=== PATIENT | female | born 1950 | race Caucasian/White ===

== ENCOUNTER 2016-08-29 14:43 | Emergency (ER) | payer MEDICARE ==
[2016-08-29 16:02] LABS: ALBUMIN 3.7 g/dL (3.4-5.0); ALKALINE PHOSPHATASE 60 U/L (46-116); ALT (SGPT) 16 U/L (10-68); BILIRUBIN - TOTAL 0.31 mg/dL (0.2-1.3); CALC OSMOLALITY 283 mosm/kg (275-300); CALCIUM 8.9 mg/dL (8.5-10.1); CARBON DIOXIDE 24.8 mmol/L (21.0-32.0); CHLORIDE - SERUM 105 mmol/L (98-107); CREATININE - SERUM 0.8 mg/dL (0.6-1.3); GLUCOSE 108 mg/dL (74-106); POTASSIUM - SERUM 3.7 mmol/L (3.5-5.1); PROTEIN - SERUM 7.1 g/dL (6.4-8.2); SODIUM 141 mmol/L (136-145); UREA NITROGEN 18 mg/dL (7-18); eGFR NON AFRICAN AMERICAN 76 mL/min (90-120)
== END 2016-08-29 18:40 | disposition home or self-care (01) ==
LOC: D.ER 14:43
PROVIDERS: Emergency Medicine
DX: I10 Essential (primary) hypertension (principal); F17.200 Nicotine dependence, unspecified, uncomplicated

== ENCOUNTER 2019-06-23 11:13 | Inpatient (IN) | payer MEDICARE ==
[~2019-06-23] VITALS: Ht 157.5 cm; Wt 62.7 kg
[2019-06-23] MEDS ORDERED: LISINOPRIL5 MG PO (11:22)
[2019-06-23] MEDS ORDERED: NORVASC10 MG PO (11:22)
[2019-06-23 11:35] LABS: BASOPHILS 0.1 % (0-2); EOSINOPHILS 1.4 % (0-7); HEMATOCRIT 39.6 % (36.0-48.0); HEMOGLOBIN 13.2 g/dL (12-16); IMMATURE GRANULOCYTES 0.3 % (0-5); LYMPHOCYTES 11.1 % (15-50); MCH 29.1 pg (26.0-34.0); MCHC 33.3 g/dL (31.0-37.0); MCV 87.4 fL (80.0-100.0); MEAN PLATELET VOLUME 8.9 fL (7.4-10.4); MONOCYTES 7.1 % (2-11); PLATELET COUNT 324 10x3/uL (130-400); RBC 4.53 10x6/uL (4.00-5.40); WBC 14.6 10x3/uL (4.8-10.8)
[2019-06-23 11:45] LABS: APTT 34.4 SECONDS (22.8-39.4); INR 0.9 (0.85-1.17); PROTIME 12.1 SECONDS (11.6-15.0)
[2019-06-23 11:53] LABS: CALC OSMOLALITY 280 mosm/kg (275-300); CALCIUM 9.3 mg/dL (8.5-10.1); CARBON DIOXIDE 25.2 mmol/L (21.0-32.0); CHLORIDE - SERUM 101 mmol/L (98-107); CREATININE - SERUM 1.1 mg/dL (0.6-1.3); GLUCOSE 130 mg/dL (74-106); POTASSIUM - SERUM 4.1 mmol/L (3.5-5.1); SODIUM 138 mmol/L (136-145); UREA NITROGEN 20 mg/dL (7-18); eGFR NON AFRICAN AMERICAN 52 mL/min (90-120)
[2019-06-23 12:10] LABS: ALBUMIN 3.6 g/dL (3.4-5.0); ALKALINE PHOSPHATASE 106 U/L (46-116); ALT (SGPT) 24 U/L (10-68); AMYLASE - SERUM 37 U/L (25-115); BILIRUBIN - TOTAL 0.95 mg/dL (0.2-1.3); CREATINE KINASE 36 UL (21-215); LIPASE 86 U/L (73-393); MAGNESIUM - SERUM 1.9 mg/dL (1.8-2.4); PRO BNP 279 pg/mL (0-125); PROTEIN - SERUM 7.9 g/dL (6.4-8.2)
[2019-06-23 12:14] LABS: TROPONIN-I < 0.017 ng/mL (0.000-0.060)
[2019-06-23 13:44] VITALS: BP 112/67
[2019-06-23 14:55] VITALS: BP 131/75
--- NOTE | 2019-06-23 15:54 | NUR ---
VALIUM HELD PER HAILE WAITER. REQUESTED TO HOLD FOR APPROX 1-2 HRS SINCE MORPHINE GIVEN PRIOR
--- NOTE | 2019-06-23 16:26 | NUR ---
PT ARRIVED VIA WHEELCHIAR TO ROOM, ALERT AND ORIENTEDX4, UP WITH ASSIST. STATES SHE HAS EXTREME PAIN WHEN EVER SHE MOVES. OTHERWISE, NO COMPLAINTS. DAUGHTER. CL IN REACH, SRX2.
[2019-06-23 16:34] VITALS: BP 122/68; Ht 157.5 cm; Wt 62.7 kg
[2019-06-23 16:52] VITALS: BP 105/61
[2019-06-23 20:00] VITALS: BP 115/68
--- NOTE | 2019-06-23 20:00 | NUR ---
RECIEVED UP IN BED WITH EYES OPEN AND TV ON. ALERT AND ORIENTED X4. UP AD RHONDA TO B/R. PLACED A [place] HAT IN TOILET AND EDUCATED PT ON U/A COLLECTION. 02 @ 2 LITERTS PER N/C IN PLACE. IV TO RIGTHT AC SL. MASCETOMY TO LEFT CHEST. DENIES ANY NEEDS AT THIS TIME.
--- NOTE | 2019-06-23 20:05 | NUR ---
URINE COLLECTED. WILL SEND TO LAB.
[2019-06-23 20:32] LABS: APPEARANCE CLEAR (CLEAR); BILIRUBIN NEGATIVE (NEGATIVE); COLOR YELLOW (YELLOW); GLUCOSE NEGATIVE (NEGATIVE); KETONE NEGATIVE (NEGATIVE); NITRITE NEGATIVE (NEGATIVE); PROTEIN NEGATIVE (NEGATIVE); UROBILINOGEN NORMAL (NORMAL)
[2019-06-24] VITALS: BP 107/58
[2019-06-24 04:00] VITALS: BP 102/54
[2019-06-24 06:47] LABS: BASOPHILS 0 % (0-2); EOSINOPHILS 0 % (0-7); HEMATOCRIT 34.8 % (36.0-48.0); HEMOGLOBIN 11.5 g/dL (12-16); IMMATURE GRANULOCYTES 0.3 % (0-5); LYMPHOCYTES 5.5 % (15-50); MCH 28.8 pg (26.0-34.0); MCV 87.2 fL (80.0-100.0); MEAN PLATELET VOLUME 9.2 fL (7.4-10.4); MONOCYTES 2.7 % (2-11); NEUTROPHILS 91.5 % (40-80); PLATELET COUNT 314 10x3/uL (130-400); RBC 3.99 10x6/uL (4.00-5.40); RDW 12.8 % (11.5-14.5); WBC 17.3 10x3/uL (4.8-10.8)
[2019-06-24 07:18] LABS: ANION GAP 12.7 mmol/L (8-16); CALCIUM 9.1 mg/dL (8.5-10.1); CARBON DIOXIDE 26.4 mmol/L (21.0-32.0); CREATININE - SERUM 0.9 mg/dL (0.6-1.3); POTASSIUM - SERUM 4.1 mmol/L (3.5-5.1)
--- NOTE | 2019-06-24 08:07 | NUR ---
PT RESTING. RR EVEN AND UNLABORED. DENIES NEEDS OR PAIN AT THIS TIME. AXO. BED IN LOWEST POSITION. CALL LIGHT WITHIN REACH. WILL CONTINUE TO MONITOR.
[2019-06-24 08:27] VITALS: BP 123/61
[2019-06-24] MEDS ORDERED: MEDROL DOSE PACK4 MG PO (10:10)
[2019-06-24] MEDS ORDERED: ZPAK PO (10:12)
--- NOTE | 2019-06-24 11:57 | NUR ---
D/C INSTRUCTIONS REVIEWED WITH PT. VERBALIZED UNDERSTANDING AND DENIES FURTHER QUESTIONS AT THIS TIME. IV D/C WITH CATHETER TIP INTACT. TELEMETRYREMOVED AND RETURNED TO CONSTRUCTION JOB COST ESTIMATOR. PT LEFT VIA WHEELCHAIR WITH ALL BELONGINGS TO PERSONAL VEHICLE.
== END 2019-06-24 12:00 | disposition home or self-care (01) | DRG 188 ==
LOC: D.ER 11:13 → D.M2 15:05
PROVIDERS: Family Medicine; ADMIT Family Medicine; ATTEND Family Medicine
DX: J90 Pleural effusion, not elsewhere classified (principal); I10 Essential (primary) hypertension; K21.9 Gastro-esophageal reflux disease without esophagitis; K44.9 Diaphragmatic hernia without obstruction or gangrene

== ENCOUNTER 2019-07-16 17:21 | Inpatient (IN) | payer MEDICARE ==
[~2019-07-16] VITALS: Ht 157.5 cm; Wt 67.6 kg
[~2019-07-16 17:21] MED LIST: ALBUTEROL SULF8.5 GM; CLEOCIN HCL300 MG PO; COLACE100 MG PO; FLORAJEN3 CAPS460 MG PO; IPRAT-ALBUT 0.5-3 ML INH; LEVOFLOXACIN500 MG PO; LISINOPRIL5 MG PO; LOVENOX40 MG/0.4 SC; MEDROL DOSE PACK4 MG PO; MIRALAX17 GM PO; NORVASC10 MG PO; PEPCID PO; ULTRAM50 MG PO; ZPAK PO
--- NOTE | 2019-07-16 19:18 | NUR ---
PT JUST ARRIVED TO UNIT VIA WHEELCHAIR. CL IN REACH. TELEMETRY ON. BED IN LOW SIDE RAILS X2. A/O X4. WILL CONTINUE TO MONITOR.
[2019-07-16 21:08] VITALS: BP 128/59
[2019-07-17 00:10] VITALS: BP 128/59; BMI 27.3
[2019-07-17 05:56] LABS: BASOPHILS 0.2 % (0-2); HEMATOCRIT 27.8 % (36.0-48.0); IMMATURE GRANULOCYTES 0.6 % (0-5); LYMPHOCYTES 13.3 % (15-50); MCH 28.1 pg (26.0-34.0); MCHC 32.4 g/dL (31.0-37.0); MCV 86.9 fL (80.0-100.0); MEAN PLATELET VOLUME 9.7 fL (7.4-10.4); MONOCYTES 8.1 % (2-11); NEUTROPHILS 76.8 % (40-80); RDW 13.9 % (11.5-14.5); WBC 12.1 10x3/uL (4.8-10.8)
[2019-07-17 06:28] LABS: CALC OSMOLALITY 266 mosm/kg (275-300); CALCIUM 7.4 mg/dL (8.5-10.1); CARBON DIOXIDE 28.5 mmol/L (21.0-32.0); CHLORIDE - SERUM 102 mmol/L (98-107); CREATININE - SERUM 0.7 mg/dL (0.6-1.3); GLUCOSE 97 mg/dL (74-106); POTASSIUM - SERUM 4.1 mmol/L (3.5-5.1); SODIUM 134 mmol/L (136-145); UREA NITROGEN 11 mg/dL (7-18); eGFR NON AFRICAN AMERICAN 88 mL/min (90-120)
[2019-07-17 06:48] LABS: PLATELET COUNT 387 10x3/uL (130-400)
--- NOTE | 2019-07-17 07:54 | NUR ---
RECEIVED REPORT. ASSUMED CARE OF PATIENT. CALL LIGHT WITHIN. RESTING IN BED WITH EYES OPEN. RESP EVEN AND UNLABORED. NO DISTRESS.
[2019-07-17 08:04] VITALS: BP 127/74
--- NOTE | 2019-07-17 09:45 | NUR ---
PATIENT OOB WITH THERAPY, GETTING SHOWER AT THIS TIME PART OF THERAPY.
--- NOTE | 2019-07-17 11:45 | NUR ---
PATIENT OOB, UP TO WHEELCHAIR IN THERAPY. TOLERATES THERAPY WELL. NO DISTRESS.
--- NOTE | 2019-07-17 15:30 | NUR ---
RESTING IN BED WITH EYES OPEN. NO DISTRESS. CALL LIGHT WITHIN REACH.
[2019-07-17 15:58] VITALS: Ht 157.5 cm; Wt 67.6 kg
--- NOTE | 2019-07-17 19:20 | NUR ---
PT LYING IN BED WATCHING TV. CL IN REACH. DENIES NEEDS OR PAIN AT THIS TIME. BED IN LOW SIDE RAILS X2. A/O X4. LUNGS DIMINISHED. BOWEL ACTIVE X4. RESP EVEN AND UNLABORED. LEFT ARM RESERVE. O2 ON 4L [place] NC. WILL CONTINUE TO MONITOR.
[2019-07-17 21:50] VITALS: BP 122/57
--- NOTE | 2019-07-18 00:30 | NUR ---
PT RESTING QUIETLY. CL IN REACH. NO DISTRESS NOTED. WCTM
--- NOTE | 2019-07-18 02:29 | NUR ---
I have reviewed this patient and I concur with the Shift Assessment completed by the Licensed Practical Nurse today this shift.
--- NOTE | 2019-07-18 05:34 | NUR ---
PT RESTING QUIETLY. CL IN REACH. NO DISTRESS NOTED. WCTM
[2019-07-18 08:44] VITALS: BP 135/67
[2019-07-18 08:53] LABS: CALC OSMOLALITY 265 mosm/kg (275-300); CALCIUM 7.9 mg/dL (8.5-10.1); CARBON DIOXIDE 31.3 mmol/L (21.0-32.0); CHLORIDE - SERUM 100 mmol/L (98-107); CREATININE - SERUM 0.8 mg/dL (0.6-1.3); GLUCOSE 99 mg/dL (74-106); POTASSIUM - SERUM 3.6 mmol/L (3.5-5.1); SODIUM 134 mmol/L (136-145); eGFR NON AFRICAN AMERICAN 75 mL/min (90-120)
[2019-07-18 08:54] LABS: UREA NITROGEN 8 mg/dL (7-18)
[2019-07-18 08:55] LABS: BASOPHILS 0.1 % (0-2); EOSINOPHILS 1.4 % (0-7); HEMATOCRIT 31.1 % (36.0-48.0); HEMOGLOBIN 10.1 g/dL (12-16); IMMATURE GRANULOCYTES 0.6 % (0-5); LYMPHOCYTES 11.7 % (15-50); MCH 28.5 pg (26.0-34.0); MCHC 32.5 g/dL (31.0-37.0); MCV 87.6 fL (80.0-100.0); MEAN PLATELET VOLUME 9.7 fL (7.4-10.4); MONOCYTES 7.7 % (2-11); NEUTROPHILS 78.5 % (40-80); PLATELET COUNT 454 10x3/uL (130-400); RBC 3.55 10x6/uL (4.00-5.40); RDW 14.4 % (11.5-14.5); WBC 11.4 10x3/uL (4.8-10.8)
--- NOTE | 2019-07-18 09:20 | NUR ---
PT AM MEDS ADMINISTERED. PT DENIES NEEDS. WCTM.
--- NOTE | 2019-07-18 11:35 | NUR ---
ADMINISTERED PRN ULTRAM FOR PAIN 7/10 TO BACK AT THIS TIME.
--- NOTE | 2019-07-18 19:40 | NUR ---
GREETED PATIENT AND INTRODUCED MYSELF HER NURSE. PATIENT IS LAYING IN BED WATCHING TV AT THIS TIME. O2 AT 2L IN USE VIA NC. RESPIRATIONS EVEN. NO S/S OF DISTRESS. DENIES ANY FURTHER NEEDS AT THIS TIME. CALL LIGHT IN REACH.
[2019-07-18 21:41] VITALS: BP 133/85
--- NOTE | 2019-07-19 00:35 | NUR ---
PT. AWAKE LAYING IN BED WATCHING TV. RESPIRATIONS EVEN. NO S/S OF DISTRESS. DENIES ANY NEEDS AT THIS TIME. CALL LIGHT IN REACH.
[2019-07-19 08:12] VITALS: BP 135/70
--- NOTE | 2019-07-19 09:48 | NUR ---
PT AM MEDS ADMINISTERED. PT DENIES NEEDS. WCTM.
--- NOTE | 2019-07-19 16:11 | RHP ---
PATIENT: RICHARD SHELTON MEDICAL RECORD: [id number] ACCOUNT: [id number] LOCATION:[place] [id number] : 52 ADMISSION DATE: 07/16/19 REHABILITATION HISTORY AND PHYSICAL EXAMINATION POST ADMISSION PHYSICIAN EXAMINATION ADMITTING DIAGNOSIS: Disuse myopathy. 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 She failed outpatient therapy and prolonged immobility. She arrived at the ED on 07/06/2019 complaining of nonproductive cough, fatigue, malaise, fever, had shortness of breath and decreased p.o. intake. She was hospitalized on 06/23/2019 for pleurisy and left pleural effusion. She received IV steroids and antibiotics, discharged home. She gradually improved, seen in the office 4 days after this, was feeling better, just fatigued. Her cough improved. She stated that for the last 2 days, she had been somewhat weaker. Her steroids were decreased orally. On the afternoon of 07/06/2019, she developed acute onset of cough, congestion and presented back to the Emergency Room where she was seen having a large pneumonia in left lower lobe. She had mild distress, rales, rhonchi, decreased breath sounds. She is noted to be hypotensive. She had an elevated lactic acid and failure outpatient therapy for pneumonia. She had sepsis and pneumonia. She was started on fluids per sepsis protocol. She was given vancomycin and Merrem and placed on O2. Cardiology was consulted secondary to her atrial fibrillation with rapid ventricular response. She is also seen by pulmonary during her stay. She had recommendations for IR to do thoracentesis. She had a CT-guided left chest tube placement on 07/09/2019. The patient had 800 cc of pleural fluid in the upper chest and 600 cc in the lower chest. She is currently on 4 liters of O2. Chest tube output has been steadily decreased over the previous couple of days, so this eventually was removed and IR signed off. Previously, the patient was independent with ADLs and mobility using a cane occasionally. Lives in her home with her niece that stays with her. Currently, she has had prolonged immobility, progressive generalized weakness, especially in lower extremities affecting her tolerance to PT. She is very fatigued, has limited extension and flexion of her lower extremities. Proximal muscle strength has decreased. She is mod to max assist for ADLs, mod to max assist for sit to stand and bed to chair. She is highly motivated and has good family support and would like to return home at her prior level of functioning. COMORBIDITIES: Include acute hypoxic respiratory failure, chest tube placement. She has got paroxysmal atrial fib, pneumonia, shortness of breath, pleural effusion, chronic obstructive pulmonary disease, hypertension, palpitations, electrolyte abnormalities, sepsis, malaise, fatigue, weakness, failed outpatient therapy, pleural effusion and cholelithiasis. 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 PAST SURGICAL HISTORY: Includes a mastectomy and also a . ALLERGIES: PENICILLIN. HISTORY AND PHYSICAL [id number] RICHARD SHELTON CURRENT MEDICATIONS: Include Floranex daily, MiraLax 17 grams in 8 ounces of water daily, lisinopril 5 mg daily, Levaquin 500 mg daily, Lovenox 40 mg subcutaneous daily, Colace 100 mg daily, Norvasc 10 mg daily, Pepcid 20 mg at bedtime, clindamycin 600 mg b.i.d., Ultram 50 to 100 mg every 6 hours p.r.n., albuterol updrafts as needed. HABITS: Does have a history of tobacco use. FAMILY HISTORY: Noncontributory. SOCIAL HISTORY: The patient hopes to return back home and get back to her prior level of functioning. REVIEW OF SYSTEMS: GENERAL: Does complain of weakness and fatigue. HEENT: Denies cold, cough, or congestion. CARDIOVASCULAR: Denies any chest pain at this time. LUNGS: Does complain of shortness of breath with activity. PHYSICAL EXAMINATION: VITAL SIGNS: Stable. She is afebrile. GENERAL: A well-developed female, in no acute distress upon exam. HEENT: Normocephalic and atraumatic. Mucosa moist. NECK: Supple. LUNGS: Clear in upper [place]ley. No wheezing, rhonchi or rales. HEART: Regular rate and rhythm. She has no murmurs, rubs or gallops. ABDOMEN: Soft, benign, and nondistended. Positive bowel sounds times 4. EXTREMITIES: Does have some changes consistent with a small amount of venous stasis, but no clubbing, cyanosis or edema. NEUROLOGIC: She does have noted proximal muscle weakness. LABORATORY DATA: White count is 12,000, H&H 9 and 27, and platelet count was noted to be 387. Her sodium is 134, potassium 4.1, BUN and creatinine of 11 and 0.7 and blood sugar was noted to be 97. ASSESSMENT: This is a 69-year-old female admitted to rehab with a working diagnosis of disuse myopathy secondary to prolonged stay in the ICU and chest tube placement. The patient has potential to make improvement. We instituted the following multidisciplinary therapies including but not limited to physical, occupational, respiratory, speech, nutritional services, prosthetics and orthotics. Given her complex medical conditions and risks for more complications, rehabilitation services cannot be provided at a low level of care such as skilled nurse facility. PLAN: 1. Admit to [facility] for intensive inpatient therapy to include the following disciplines; A. Physical therapy to improve gait, all transfer skills and bed mobility to a modified independent level. B. Occupational therapy to a modified independent level. C. Case management to assist with discharge planning and placement options. D. Nutrition to assist with nutritional needs. E. Rehabilitation nursing to assist in monitoring the patient's underlying medical conditions and to assist with any type of bowel or bladder management. 2. The patient's current medication and medical care will be continued. HISTORY AND PHYSICAL [id number] RICHARD SHELTON 3. The patient will be placed on standard fall precautions. 4. The patient's estimated length of stay is approximately 7-10 days. 5. We will discuss this patient during care team staff meeting this week, which will be tomorrow. We will keep her on her antibiotics, watch for any changes in her pneumonia. Repeat chest x-rays as needed. TRANSINT:[id number] Voice Confirmation ID: [id number] DOCUMENT ID: [id number] PATRICIO notes whether there has been none or any medical/functional change since admission: - No change since pre-admission screen. PATRICOI attests patient continues to be appropriate for IRF: - Continues to be appropriate. JOSÉ MIGUEL MENDIETA MD at 1611 CC: [id number] DICTATION DATE: 07/17/19 0850 BARREL BUNG REMOVER AND DUMPER: 07/17/19 1020 [place] [address]
--- NOTE | 2019-07-19 17:20 | NUR ---
PATIENT ADMITTED TO REHAB FROM ACUTE FLOOR. HER PCP IS DR. NIETO. DME AT HOME IS A CANE, WALKER, WHEELCHAIR AND A SHOWERCHAIR. WILL CONTINUE TO FOLLOW WITH PATIENT.
--- NOTE | 2019-07-19 19:11 | NUR ---
GREETED PATIENT AND INTRODUCED MYSELF HER NURSE. PATIENT IS SITTING IN RECLINER WATCHING TV AT THIS TIME WITH LEGS ELEVATED. BEDSIDE SHIFT REPORT COMPLETE WITH OFF GOING NURSE. RESPIRATIONS EVEN. NO S/S OF DISTRESS. CALL LIGHT IN REACH.
[2019-07-19 22:13] VITALS: BP 103/52
--- NOTE | 2019-07-20 02:25 | NUR ---
PT. STILL SITTING IN RECLINER SLEEPING. PT. STATED THAT SHE WANTED TO SLEEP IN THE CHAIR INSTEAD OF THE BED FOR A LITTLE WHILE. O2 AT 4L IN USE VIA NC. RESPIRATIONS EVEN. NO S/S OF DISTRESS. CALL LIGHT IN REACH.
[2019-07-20 08:55] LABS: BASOPHILS 0.3 % (0-2); EOSINOPHILS 1.9 % (0-7); HEMATOCRIT 27.6 % (36.0-48.0); HEMOGLOBIN 8.8 g/dL (12-16); IMMATURE GRANULOCYTES 0.4 % (0-5); LYMPHOCYTES 14.1 % (15-50); MCH 27.9 pg (26.0-34.0); MCHC 31.9 g/dL (31.0-37.0); MCV 87.6 fL (80.0-100.0); MEAN PLATELET VOLUME 9.3 fL (7.4-10.4); MONOCYTES 10.7 % (2-11); NEUTROPHILS 72.6 % (40-80); PLATELET COUNT 408 10x3/uL (130-400); RBC 3.15 10x6/uL (4.00-5.40); RDW 14.6 % (11.5-14.5)
[2019-07-20 09:02] LABS: WBC 7.8 10x3/uL (4.8-10.8)
[2019-07-20 09:05] LABS: CALC OSMOLALITY 266 mosm/kg (275-300); CALCIUM 7.7 mg/dL (8.5-10.1); CARBON DIOXIDE 28.7 mmol/L (21.0-32.0); CHLORIDE - SERUM 101 mmol/L (98-107); CREATININE - SERUM 0.8 mg/dL (0.6-1.3); GLUCOSE 96 mg/dL (74-106); POTASSIUM - SERUM 3.6 mmol/L (3.5-5.1); SODIUM 134 mmol/L (136-145); UREA NITROGEN 10 mg/dL (7-18); eGFR NON AFRICAN AMERICAN 75 mL/min (90-120)
--- NOTE | 2019-07-20 09:20 | NUR ---
PT AM MEDS ADMINISTERED. PT DENIES NEEDS. WCTM.
[2019-07-20 09:41] VITALS: BP 85/44
--- NOTE | 2019-07-20 19:26 | NUR ---
GREETED PATIENT AND INTRODUCED MYSELF HER NURSE. PATIENT IS SITTING IN RECLINER WITH LEGS ELEVATED TO HELP WITH SWELLING. PATIENT STATES THAT SHE HAS HAD A "GOOD DAY". O2 AT 1.5 L IN USE VIA NC. RESPIRATIONS EVEN. NO S/S OF DISTRESS. CALL LIGHT IN REACH.
[2019-07-20 20:01] VITALS: BP 109/64
--- NOTE | 2019-07-21 00:20 | NUR ---
PT. AWAKE SITTING IN RECLINER WATCHING TV. LEGS ELEVATED TO HELP WITH SWELLING. O2 IN USE AT 1.5 L NC. RESPIRATIONS EVEN. NO S/S OF DISTRESS. CALL LIGHT IN REACH.
--- NOTE | 2019-07-21 07:14 | NUR ---
ALERT AND ORIENTED. NO C/O PAIN. RESP EVEN AND UNLABORED.
[2019-07-21 07:48] VITALS: BP 90/43
--- NOTE | 2019-07-21 11:29 | NUR ---
SITTING IN ROOM IN . PAIN MED GIVEN FOR BACK PAIN. NO DISTRESS NOTED. PARTICIPATED IN THERAPY THIS AM.
--- NOTE | 2019-07-21 15:23 | NUR ---
NO CHANGE IN ASSESSMENT. IN THERAPY AT THIS TIME. NO DISTRESS NOTED.
--- NOTE | 2019-07-21 19:20 | NUR ---
GREETED PATIENT AND INTRODUCED MYSELF HER NURSE. PATIENT IS SITING IN RECLINER WITH LEGS ELEVATED TO HELP WITH SWELLING. O2 AT 2L IN USE VIA NC. RESPIRATIONS EVEN. NO S/S OF DISTRESS. DENIES ANY FURTHER NEEDS AT THIS TIME. CALL LIGHT IN REACH.
[2019-07-21 20:30] VITALS: BP 98/44
--- NOTE | 2019-07-22 00:49 | NUR ---
PT. RESTING QUIETLY WITH EYES CLOSED SITTING IN RECLINER WITH LEGS ELEVATED.O2 AT 2L IN USE VIA NC. RESPIRATIONS EVEN. NO S/S DISTRESS.
--- NOTE | 2019-07-22 04:41 | NUR ---
PT. RESTING QUIETLY SITTING UP IN RECLINER WITH EYES CLOSED. O2 AT 2L IN USE VIA NC. RESPIRATIONS EVEN. NO S/S OF DISTRESS. CALL LIGHT IN REACH.
[2019-07-22 09:29] VITALS: BP 88/50
--- NOTE | 2019-07-22 10:00 | NUR ---
PT AM MEDS ADMINSITERED. PT DENIES NEEDS. WCTM.
--- NOTE | 2019-07-22 18:27 | NUR ---
PT SITTING UP IN BEDSIDE CHAIR, FAMILY AT BEDSIDE, DENIES NEEDS. WCTM.
--- NOTE | 2019-07-22 19:32 | NUR ---
PT SITTING UP IN RECLINER WATCHING TV. CL IN REACH. DENIES NEEDS OR PAIN AT THIS TIME. BED IN LOW SIDE RAILS X2. A/O X4. LEFT ARM RESERVE. 2L OF O2 VIA NC. LUNGS CLEAR. BOWEL ACTIVE X4. RESP EVEN AND UNLABORED. WILL CONTINUE TO MONITOR.
[2019-07-22 20:00] VITALS: BP 105/59
--- NOTE | 2019-07-23 00:48 | NUR ---
I have reviewed this patient and I concur with the Shift Assessment completed by the Licensed Practical Nurse today this shift.
--- NOTE | 2019-07-23 04:35 | NUR ---
ASSISTED TO AND FROM BATHROOM. PT BACK IN RECLINER. DENIES FURTHER NEEDS. WCTM CL IN REACH
[2019-07-23 07:55] LABS: BASOPHILS 0.6 % (0-2); EOSINOPHILS 2.4 % (0-7); HEMATOCRIT 27.7 % (36.0-48.0); IMMATURE GRANULOCYTES 0.4 % (0-5); MCH 27.5 pg (26.0-34.0); MCHC 32.5 g/dL (31.0-37.0); MCV 84.7 fL (80.0-100.0); MEAN PLATELET VOLUME 8.4 fL (7.4-10.4); MONOCYTES 9.4 % (2-11); NEUTROPHILS 72.2 % (40-80); RBC 3.27 10x6/uL (4.00-5.40); RDW 14.2 % (11.5-14.5)
[2019-07-23 08:00] VITALS: BP 102/54
[2019-07-23 08:02] LABS: CALCIUM 8.3 mg/dL (8.5-10.1); CARBON DIOXIDE 29.8 mmol/L (21.0-32.0); POTASSIUM - SERUM 3.8 mmol/L (3.5-5.1)
[2019-07-23 08:09] LABS: PLATELET COUNT 297 10x3/uL (130-400)
--- NOTE | 2019-07-23 10:10 | NUR ---
PT AM MEDS ADMINISTERED. PT DENIES NEEDS. WCTM.
--- NOTE | 2019-07-23 18:21 | NUR ---
PT GIVEN PRN ZOFRAN D/T REQUEST. PT SITTING UP IN BEDSIDE CHAIR AT THIS TIME. WCTM.
--- NOTE | 2019-07-23 19:18 | NUR ---
PT SITTING UP IN RECLINER. DENIES NEEDS OR PAIN AT THIS TIME. BED IN LOW SIDE RAILS X2. A/O X4. LUNGS CLEAR. BOWEL ACTIVE X4. O2 ON 2L VIA NC. RESP EVEN AND UNLABORED. WILL CONTINUE TO MONITOR.
[2019-07-23 22:21] VITALS: BP 101/58
--- NOTE | 2019-07-24 00:27 | NUR ---
I have reviewed this patient and I concur with the Shift Assessment completed by the Licensed Practical Nurse today this shift.
--- NOTE | 2019-07-24 04:50 | NUR ---
PT IN RECLINER. CL IN REACH. DENIES NEEDS. WCTM
[2019-07-24 08:00] VITALS: BP 108/61
--- NOTE | 2019-07-24 08:00 | NUR ---
PT RESTING IN BED WITH EYES OPEN CALL LIGHT IN REACH WILL MONITER
--- NOTE | 2019-07-24 10:00 | NUR ---
I have reviewed this patient and I concur with the Shift Assessment completed by the Licensed Practical Nurse today this shift.
--- NOTE | 2019-07-24 14:38 | NUR ---
Nutrition Follow-up: Diet: Cardiac + Ensure with breakfast and lunch trays PO intake: ~57% average x last 5 meals (previously 75-100%); reports that her appetite is down. She thinks that it is the medication that she is on that is causing decreased appetite. She prefers Boost over Ensure. Last BM: 07/22/19. WT: 149# (07/17/19), no new WT Meds noted: dyazide, miralax. Labs noted: Na 129(L) Recommend getting new WT on patient. Will change Ensure to Boost. Recommend continue current diet. Encouraged PO intake. RD following.
--- NOTE | 2019-07-24 17:37 | NUR ---
PT UP AT BEDSIDE EATING SUPPER CALL LIGHT IN REACH WILL MONITER
--- NOTE | 2019-07-24 19:22 | NUR ---
PT SITTING UP IN RECLINER. CL IN REACH. DENIES NEEDS OR PAIN AT THIS TIME. BED IN LOW SIDE RAILS X2. LUNGS CLEAR. BOWEL ACTIVE X4. RESP EVEN AND UNLABORED. A/O X4. WILL CONTINUE TO MONITOR.
[2019-07-24 20:42] VITALS: BP 91/43
--- NOTE | 2019-07-24 23:14 | NUR ---
I have reviewed this patient and I concur with the Shift Assessment completed by the Licensed Practical Nurse today this shift.
--- NOTE | 2019-07-25 07:35 | NUR ---
PT RESTING IN BED WITH EYES OPEN CALL LIGHT IN REACH WILL MONITER
[2019-07-25 08:00] VITALS: BP 113/55
[2019-07-25 09:21] LABS: BASOPHILS 0.3 % (0-2); EOSINOPHILS 1.9 % (0-7); HEMATOCRIT 27.4 % (36.0-48.0); HEMOGLOBIN 8.8 g/dL (12-16); IMMATURE GRANULOCYTES 0.4 % (0-5); LYMPHOCYTES 9.3 % (15-50); MCH 27.6 pg (26.0-34.0); MCHC 32.1 g/dL (31.0-37.0); MCV 85.9 fL (80.0-100.0); MEAN PLATELET VOLUME 8.4 fL (7.4-10.4); MONOCYTES 7.3 % (2-11); NEUTROPHILS 80.8 % (40-80); PLATELET COUNT 253 10x3/uL (130-400); RBC 3.19 10x6/uL (4.00-5.40); RDW 14.5 % (11.5-14.5); WBC 6.8 10x3/uL (4.8-10.8)
[2019-07-25 09:23] LABS: ANION GAP 9.9 mmol/L (8-16); CALCIUM 8.1 mg/dL (8.5-10.1); CARBON DIOXIDE 30.1 mmol/L (21.0-32.0); CREATININE - SERUM 1.9 mg/dL (0.6-1.3)
--- NOTE | 2019-07-25 11:00 | NUR ---
I have reviewed this patient and I concur with the Shift Assessment completed by the Licensed Practical Nurse today this shift.
--- NOTE | 2019-07-25 17:54 | NUR ---
PT RESTING IN BED WITH EYES OPEN CALL LIGHT IN REACH NO PROBLEMS WILL MONITER
[2019-07-25 22:11] VITALS: BP 91/53
--- NOTE | 2019-07-26 02:36 | NUR ---
PT LYING IN BED EYES CLOSED RESTING. RR EVEN AND UNLABORED. CL IN REACH
--- NOTE | 2019-07-26 05:24 | NUR ---
PT LYING IN BED EYES CLOSED RESTING. RR EVEN AND UNLABORED. CL IN REACH.
[2019-07-26 08:43] VITALS: BP 94/52
--- NOTE | 2019-07-26 11:27 | NUR ---
ALERT AND ORIENTED. UP TO THERAPY TODAY. C/O PAIN, MEDICATED WITH ULTRAM. NO SIGNS OF DISTRESS. WILL CONTINUE TO MONITOR.
--- NOTE | 2019-07-26 18:53 | NUR ---
BEDSIDE REPORT COMPLETE. PT SITTING UP IN CHAIR WATCHING TV. DENIES ANY NEEDS OR PAIN. RR EVEN AND UNLABORED. CONTINUES ON 2L VIA NC. CL IN REACH. FALL PRECAUTIONS IN PLACE. WILL CONTINUE TO MONITOR
--- NOTE | 2019-07-26 19:29 | NUR ---
AWAKE AND ALERT WITH NIECE VISITING THIS PM. NIECE SHOWERED HER AUNT. PT HAS SOME REDNESS IN GROIN AREA. NYSTATIN POWDER APPLIED, LOOSENED HER DEPENDS. ALSO HAS RAW AREA ON COCCYX. CALMOSEPTINE APPLIED. 2+ BILATERAL PEDAL EDEMA NOTED, PT STATES THIS HAS IMPROVED. SOCKS WERE TOO TIGHT, RED AREAS NOTED ON MEDIAL ASPECT OF ANKLES AND GUY LOTION APPLIED. WILL CONTINUE TO MONITOR.
[2019-07-26 22:10] VITALS: BP 93/53
--- NOTE | 2019-07-27 00:13 | NUR ---
PT LYING IN BED EYES CLOSED RESTING. RR EVEN AND UNLABORED. CL IN REACH
--- NOTE | 2019-07-27 02:58 | NUR ---
PT LYING IN BED SUPINE EYES CLOSED RESTING. HOB 15 DEGREES. CONTINUES ON 2L VIA NC. CL IN REACH
[2019-07-27 07:16] LABS: BASOPHILS 0.3 % (0-2); HEMATOCRIT 24.5 % (36.0-48.0); HEMOGLOBIN 7.9 g/dL (12-16); IMMATURE GRANULOCYTES 0.9 % (0-5); LYMPHOCYTES 16.2 % (15-50); MCH 27.1 pg (26.0-34.0); MCHC 32.2 g/dL (31.0-37.0); MEAN PLATELET VOLUME 7.9 fL (7.4-10.4); MONOCYTES 8.3 % (2-11); NEUTROPHILS 69.3 % (40-80); PLATELET COUNT 238 10x3/uL (130-400); RBC 2.92 10x6/uL (4.00-5.40); RDW 14.1 % (11.5-14.5); WBC 5.8 10x3/uL (4.8-10.8)
[2019-07-27 07:20] LABS: MCV 83.9 fL (80.0-100.0)
[2019-07-27 07:30] LABS: ANION GAP 7.6 mmol/L (8-16); CALCIUM 7.8 mg/dL (8.5-10.1); CARBON DIOXIDE 30.4 mmol/L (21.0-32.0)
[2019-07-27 08:25] VITALS: BP 104/65
--- NOTE | 2019-07-27 10:00 | NUR ---
AM MEDS GIVEN IN JELLO. WORKING WITH PT AND BECAME NAUSEATED. RETURNED TO ROOM. NO SIGNS OF DISTRESS. CALL LIGHT WITHIN REACH AND WILL CONTINUE TO MONITOR.
--- NOTE | 2019-07-27 14:35 | NUR ---
CARE TEAM MEETING: PATIENT DOING WELL IN THERAPY , TENATIVE DSICHARGE DATE IS 07/31/19. WILL CONTINUE TO FOLLOW WITH PATIENT AND WILL ASSIT WITH NEEDS.
--- NOTE | 2019-07-27 18:15 | NUR ---
A UNIT OF PRBC WAS ORDERED DUE TO LOW H/H. IV: 22GAUGE IV STARTED IN RIGHT ANTECUBITAL AREA WITH NORMAL SALINE VIA PUMP. PREMEDICATED ORDERED. V/S STABLE. BLOOD STARTED AT 1815. 30 MINUTE V/S WERE STABLE, PT NOT COMPLAINING OF ANY REACTION. CALL LIGHT WITHIN REACH. WILL CONTINUE TO MONITOR.
--- NOTE | 2019-07-27 18:50 | NUR ---
BEDSIDE REPORT COMPLETE. PT LYING IN BED WATCHING TV. DENIES ANY NEEDS OR PAIN. RIGHT AC IV INFUSING PRBC @ 75ML/HR. NO SIGNS OF ACUTE DISTRESS NOTED. CONTINUES ON 1.5L VIA NC. CL IN REACH. FALL PRECAUTIONS IN PLACE. WILL CONTINUE TO MONTIOR
[2019-07-27 21:50] VITALS: BP 95/56
--- NOTE | 2019-07-28 00:14 | NUR ---
PT LYING IN BED SUPINE EYES CLOSED RESTING. RR EVEN AND UNLABORED. CONTINUES ON 1.5L VIA NC. CL IN REACH
--- NOTE | 2019-07-28 03:42 | NUR ---
PT LYING IN BED EYES CLOSED RESTING. RR EVEN AND UNLABORED. CL IN REACH
--- NOTE | 2019-07-28 05:22 | NUR ---
PT LYING IN BED EYES CLOSED RESTING. RR EVEN AND UNLABORED. CL IN REACH
[2019-07-28 07:00] VITALS: BP 96/66
--- NOTE | 2019-07-28 08:00 | NUR ---
PT UP AT BEDSIDE EATING BREAKFAST TOLERATING WELL WILL MONITER
--- NOTE | 2019-07-28 15:09 | NUR ---
I have reviewed this patient and I concur with the Shift Assessment completed by the Licensed Practical Nurse today this shift.
--- NOTE | 2019-07-28 15:29 | NUR ---
PT RESTING IN BED WITH EYES OPEN CALL LIGHT IN REACH WILL MONITER
--- NOTE | 2019-07-28 18:34 | NUR ---
PT RESTING IN BED WITH EYES OPEN CALL LIGHT IN REACH WILL MONITER
[2019-07-28 20:00] VITALS: BP 97/63
--- NOTE | 2019-07-28 23:16 | NUR ---
PATIENT RECEIVED SITTING UP IN CHAIR AT BEDSIDE. ASSESSMENT & VITAL SIGNS DONE. NO C/O PAIN OR DISTRESS. CALL LIGHT WITHIN REACH. WILL CONTINUE TO MONITOR.
--- NOTE | 2019-07-29 01:00 | NUR ---
I have reviewed this patient and I concur with the Shift Assessment completed by the Licensed Practical Nurse today this shift.
--- NOTE | 2019-07-29 04:00 | NUR ---
PATIENT EYES CLOSED. RESPIRATIONS 18 & EVEN. CALL LIGHT & TABLE WITHIN REACH. BED LOW. ALARM ON. CALL LIGHT WITHIN REACH. WILL CONTINUE TO MONITOR.
--- NOTE | 2019-07-29 08:00 | NUR ---
SHIFT ASSMT COMPLETED.BREAKFAST GIVEN.CL IN REACH.
[2019-07-29 10:08] VITALS: BP 117/75
--- NOTE | 2019-07-29 15:47 | NUR ---
FAMILY VISITING.EATING LUNCH.
--- NOTE | 2019-07-29 20:00 | NUR ---
PATIENT RECEIVED SITTING UP IN HER RECLINER. ASSESSMENT & VITAL SIGNS DONE. NO C/O PAIN OR DISTRESS. TABLE & CALL LIGHT WITHIN REACH. WILL CONTINUE TO MONITOR.
[2019-07-29 22:52] VITALS: BP 108/70
--- NOTE | 2019-07-30 01:06 | NUR ---
I have reviewed this patient and I concur with the Shift Assessment completed by the Licensed Practical Nurse today this shift.
--- NOTE | 2019-07-30 02:32 | NUR ---
PATIENT EYES CLOSED. RESPIRATIONS 18 & EVEN. TABLE & CALL LIGHT WITHIN REACH. WILL CONTINUE TO MONITOR.
[2019-07-30 07:32] LABS: BASOPHILS 0.2 % (0-2); EOSINOPHILS 4.1 % (0-7); HEMATOCRIT 31.1 % (36.0-48.0); HEMOGLOBIN 10.4 g/dL (12-16); IMMATURE GRANULOCYTES 2.4 % (0-5); LYMPHOCYTES 16.7 % (15-50); MCH 27.7 pg (26.0-34.0); MCHC 33.4 g/dL (31.0-37.0); MCV 82.9 fL (80.0-100.0); MEAN PLATELET VOLUME 8.2 fL (7.4-10.4); MONOCYTES 9.7 % (2-11); NEUTROPHILS 66.9 % (40-80); RBC 3.75 10x6/uL (4.00-5.40); RDW 14.4 % (11.5-14.5); WBC 8.4 10x3/uL (4.8-10.8)
[2019-07-30 07:37] LABS: PLATELET COUNT 318 10x3/uL (130-400)
[2019-07-30 07:47] LABS: ANION GAP 8.7 mmol/L (8-16); CALCIUM 8.4 mg/dL (8.5-10.1); CARBON DIOXIDE 28.2 mmol/L (21.0-32.0); POTASSIUM - SERUM 3.9 mmol/L (3.5-5.1)
[2019-07-30 08:14] VITALS: BP 117/70
--- NOTE | 2019-07-30 08:15 | NUR ---
PT RESTING IN BED WITH EYES OPEN CALL LIGHT IN REACH WILL MONITER
[2019-07-30] MEDS ORDERED: TRIAMTERENE-HC1 EAC3 PO (08:37)
--- NOTE | 2019-07-30 14:50 | NUR ---
Nutrition Follow-up: Chart reviewed, "edema somewhat better with diuretic" per MD notes. Diet: Cardiac + Boost with Lunch and Dinner Trays PO intake: ~52% average x last 9 meals; Reports that her appetite is "getting better." States that she is drinking Boost. Willing to try Izaiah once daily to help with wound healing. Wants Ice cream with dinner. Last BM: 07/29/19. WT: 149# (07/17/19), no new WT Meds noted: miralax. Labs noted: Na 127(L), Cr 2.0(H), GFR 26(L). Skin: stage II PU to buttocks Recommmend continue current diet and oral nutrition supplement. Will add Izaiah once daily. Will continue to honor food preferences. RD following.
--- NOTE | 2019-07-30 18:50 | NUR ---
BEDSIDE REPORT COMPLETE. PT SITTING UP IN CHAIR VISITING WITH DAUGHTER. C/O GENERALIZED PAIN 6/10 REQUESTS PAIN MEDICATION. NO SIGNS OF ACUTE DISTRESS NOTED. CL IN REACH. FALL PRECAUTIONS IN PLACE. WILL CONTINUE TO MONITOR
[2019-07-30 20:52] VITALS: BP 118/66
--- NOTE | 2019-07-30 23:01 | NUR ---
PT LYING IN BED EYES CLOSED RESTING. RR EVEN AND UNLABORED. O2 SAT 93% ON ROOM AIR. CL IN REACH
--- NOTE | 2019-07-31 02:40 | NUR ---
PT LYING IN RECLINER EYES CLOSED RESTING. RR EVEN AND UNLABORED. CL IN REACH
--- NOTE | 2019-07-31 06:22 | NUR ---
PT SITTING UP IN CHAIR EYES CLOSED RESTING. RR EVEN AND UNLABORED. CL IN REACH
[2019-07-31 07:52] VITALS: BP 111/68
--- NOTE | 2019-07-31 09:20 | NUR ---
PATIENT DISCHARGING HOME TODAY WITH FAMILY. [facility] WILL PROVIDE THERAPY AT HOME. NO NEW DME NEEDED AT THIS TIME. DR. NIETO 08/10/2019 @ 10:40. PATIENT CHOICE FORM FOR HOME HEALTH SIGNED, COMPARE DATA REVIEWED AND PATIENT CHOSE [facility] FORM SIGNED AND EXPLAINED, ONE GIVEN TO PATIENT AND ONE FILED IN CHART. DISCHARGE INSTRUCTIONS FAXED TO PCP, HOME HEALTH AND REVIEWED WITH PATIENT.
--- NOTE | 2019-07-31 09:53 | NUR ---
PT AM MEDS ADMINISTERED. PT DISCHARGE INSTRUCTIONS REV'D AND PT STATES UNDERSTANDING. PT DENIES NEEDS. WCTM.
--- NOTE | 2019-07-31 10:37 | NUR ---
PT DISCHARGING HOME WITH FAMILY. PT ESCORTED OUT VIA WHEELCHAIR BY HOSPITAL STAFF. PT MEDICATIONS CALLED IN TO [facility] [place].
== END 2019-07-31 10:38 | disposition home health service (06) | DRG 91 ==
LOC: D.REHAB 17:21
PROVIDERS: ADMIT Emergency Medicine; ATTEND Emergency Medicine
DX: G72.89 Other specified myopathies (principal); J96.01 Acute respiratory failure with hypoxia; J18.9 Pneumonia, unspecified organism; A41.9 Sepsis, unspecified organism; J90 Pleural effusion, not elsewhere classified; N17.9 Acute kidney failure, unspecified; N39.0 Urinary tract infection, site not specified; E87.1 Hypo-osmolality and hyponatremia; E87.2 Acidosis; I48.0 Paroxysmal atrial fibrillation; J44.9 Chronic obstructive pulmonary disease, unspecified; I10 Essential (primary) hypertension; R00.2 Palpitations; E87.8 Other disorders of electrolyte and fluid balance, not elsewhere classified; R53.81 Other malaise; R53.83 Other fatigue; R53.1 Weakness; K80.20 Calculus of gallbladder without cholecystitis without obstruction; R07.9 Chest pain, unspecified; I95.9 Hypotension, unspecified; K21.9 Gastro-esophageal reflux disease without esophagitis; R79.89 Other specified abnormal findings of blood chemistry

== ENCOUNTER 2019-08-06 15:01 | Inpatient (IN) | payer MEDICARE ==
[~2019-08-06] VITALS: Ht 157.5 cm; Wt 54.1 kg
[~2019-08-06 15:01] MED LIST changes: -ALBUTEROL SULF8.5 GM; +ALBUTEROL SULF8.5 GM INH; +TRIAMTERENE-HC1 EAC3 PO
[2019-08-06 15:45] VITALS: BP 118/72
[2019-08-06 16:12] LABS: BASOPHILS 0.4 % (0-2); EOSINOPHILS 0.6 % (0-7); HEMATOCRIT 34.8 % (36.0-48.0); HEMOGLOBIN 11.7 g/dL (12-16); IMMATURE GRANULOCYTES 4.7 % (0-5); LYMPHOCYTES 8.5 % (15-50); MCH 28.1 pg (26.0-34.0); MCHC 33.6 g/dL (31.0-37.0); MCV 83.5 fL (80.0-100.0); NEUTROPHILS 78.8 % (40-80); PLATELET COUNT 372 10x3/uL (130-400); RBC 4.17 10x6/uL (4.00-5.40); RDW 14.4 % (11.5-14.5); WBC 16.2 10x3/uL (4.8-10.8)
[2019-08-06 16:27] LABS: CALC OSMOLALITY 267 mosm/kg (275-300); CALCIUM 9.3 mg/dL (8.5-10.1); CARBON DIOXIDE 26.4 mmol/L (21.0-32.0); CHLORIDE - SERUM 94 mmol/L (98-107); CREATININE - SERUM 2.8 mg/dL (0.6-1.3); POTASSIUM - SERUM 4.1 mmol/L (3.5-5.1); SODIUM 129 mmol/L (136-145); UREA NITROGEN 30 mg/dL (7-18); eGFR NON AFRICAN AMERICAN 18 mL/min (90-120)
[2019-08-06 16:29] LABS: GLUCOSE 150 mg/dL (74-106)
[2019-08-06 16:33] LABS: APTT 45.4 SECONDS (22.8-39.4); INR 1.12 (0.85-1.17); PROTIME 14.4 SECONDS (11.6-15.0)
[2019-08-06 16:43] VITALS: BP 131/82
[2019-08-06 16:44] LABS: ALBUMIN 2.2 g/dL (3.4-5.0); ALKALINE PHOSPHATASE 72 U/L (30-120); ALT (SGPT) 12 U/L (10-68); BILIRUBIN - TOTAL 0.41 mg/dL (0.2-1.3); CKMB 0.5 U/L (0.0-3.6); CREATINE KINASE 12 UL (21-215); MAGNESIUM - SERUM 1.9 mg/dL (1.8-2.4); PROTEIN - SERUM 7.6 g/dL (6.4-8.2)
[2019-08-06 16:46] LABS: TROPONIN-I < 0.017 ng/mL (0.000-0.060)
[2019-08-06 16:58] VITALS: BP 131/82
--- NOTE | 2019-08-06 17:20 | NUR ---
URINE TO LAB
[2019-08-06 17:39] LABS: BILIRUBIN NEGATIVE (NEGATIVE); GLUCOSE NEGATIVE (NEGATIVE); KETONE NEGATIVE (NEGATIVE); NITRITE NEGATIVE (NEGATIVE); UROBILINOGEN NORMAL (NORMAL)
[2019-08-06 17:40] LABS: BACTERIA FEW /hpf (NEGATIVE); EPITHELIAL CELLS 0-5 /hpf (0-5); RED CELLS - URINE 0-5 /hpf (0-5); WHITE CELLS - URINE 0-5 /hpf (NEGATIVE)
[2019-08-06 19:00] VITALS: BP 142/87
--- NOTE | 2019-08-06 19:00 | NUR ---
PT SITTING UPRIGHT ON BED. FAMILY AT BEDSIDE. NO S/S OF ACUTE DISTRESS NOTED. SINUS TACH NOTED ON MONITOR
[2019-08-06 20:00] VITALS: BP 144/84
--- NOTE | 2019-08-06 20:13 | NUR ---
PT UPDATED ON POC. PT DENIES NEEDS AT THIS TIME.
--- NOTE | 2019-08-06 22:00 | NUR ---
RECIEVED REPORT FROM KALI SHARMA, PT ARRIVED BY BED. PT AAOX4, AFVSS, NO S/S OF RT DISTRESS. REDNESS, EXCORIATION ON COCCYX. PIV X2 ON R.HAND AND R.FOREARM. CRAWFORD INTACT AND DRAINING. PT DENIES ANY FURTHER NEEDS AT THIS TIME. WILL CPOC. CL WITHIN REACH.
[2019-08-06 23:07] VITALS: BP 131/71; BMI 22.0
[2019-08-07 00:31] VITALS: BP 107/65
[2019-08-07 05:19] VITALS: BP 94/53
--- NOTE | 2019-08-07 07:00 | NUR ---
RECEIVED REPORT. ASSUMED CARE OF PATIENT. CALL LIGHT WITHIN REACH. PATIENT LYING IN BED WITH EYES OPEN. RESP EVEN AND UNLABORED. DENIES NEEDS. NO DISTRESS.
--- NOTE | 2019-08-07 09:48 | NUR ---
SPOKE WITH PATIENTS BIANCA THIS AM SHE HAS CALLED TO CHECK ON PATIENT BECAUSE THE PATIENT IS SENDING TEXT MESSAGES TO HER STATING SHE DOSEN'T THINK SHE WILL EVER GET TO COME HOME AGAIN. NO NEW LABS THIS AM AND PHYSICIAN NOT ON UNIT AT THIS TIME. PATIENTS MILEYKEITH STATES THAT SHE HAS ALSO CALLED OFFICE AND SPOKE WITH THE NURSE ASKING THAT THE NURSE HAVE CALL HER BACK.
[2019-08-07 10:19] VITALS: BP 101/64
[2019-08-07 14:29] VITALS: BP 107/56
[2019-08-07 16:00] VITALS: BP 109/62
--- NOTE | 2019-08-07 16:51 | NUR ---
LYING IN BED, DENIES NEEDS. PATIENT NIECE AT BEDSIDE. CALL LIGHT WITHIN REACH. NO DISTRESS.
--- NOTE | 2019-08-07 19:37 | NUR ---
PT DENIES NEEDS AT THIS TIME ALERT AND OX4 BED IS LOW AND LOCKED IV SITES X2 PATENT IN THE RT ARM
[2019-08-07 21:17] VITALS: BP 97/55
--- NOTE | 2019-08-07 22:55 | NUR ---
ORDERS NOTED BUT EKG AND MONITOR HAS ALREADY BEEN APPLIED
[2019-08-08 00:26] VITALS: BP 95/60
--- NOTE | 2019-08-08 02:17 | NUR ---
I have reviewed this patient and I concur with the Shift Assessment completed by the Licensed Practical Nurse today this shift.
[2019-08-08 06:00] VITALS: BP 110/66
[2019-08-08 07:14] LABS: BASOPHILS 0.5 % (0-2); EOSINOPHILS 4.4 % (0-7); HEMATOCRIT 28.8 % (36.0-48.0); IMMATURE GRANULOCYTES 3.4 % (0-5); LYMPHOCYTES 11.1 % (15-50); MCH 27.1 pg (26.0-34.0); MCHC 32.3 g/dL (31.0-37.0); MEAN PLATELET VOLUME 7.8 fL (7.4-10.4); MONOCYTES 6.5 % (2-11); NEUTROPHILS 74.1 % (40-80); PLATELET COUNT 335 10x3/uL (130-400); RBC 3.43 10x6/uL (4.00-5.40); RDW 14.6 % (11.5-14.5)
[2019-08-08 07:38] LABS: HEMOGLOBIN 9.3 g/dL (12-16); WBC 10.1 10x3/uL (4.8-10.8)
[2019-08-08 07:41] LABS: ANION GAP 8.5 mmol/L (8-16); CARBON DIOXIDE 26.4 mmol/L (21.0-32.0); POTASSIUM - SERUM 3.9 mmol/L (3.5-5.1); VANCOMYCIN - TROUGH 14.5 ug/mL (10.0-20.0)
[2019-08-08 07:42] LABS: CREATININE - SERUM 1.9 mg/dL (0.6-1.3)
--- NOTE | 2019-08-08 08:06 | NUR ---
PATIENT IS ALERT AND ORINETED. DENIES ANY NEEDS AT THIS TIME.
[2019-08-08 11:29] VITALS: BP 100/65
[2019-08-08 15:19] VITALS: BP 98/68
[2019-08-08 20:00] VITALS: BP 108/66
--- NOTE | 2019-08-08 20:11 | NUR ---
PT LYING IN BED AWAKE ALERT AND ORIENTED x4. NO SIGNS OF DISTRESS NOTED. RESPIRATIONS EVEN AND UNLABORED. PT ENCOURARGED TO CALL FOR HELP WHEN NEEDED. CALL LIGHT WITHIN REACH AND BED IS IN LOWEST POSITION. WILL CONTINUE TO MONITOR.
[2019-08-09] VITALS: BP 112/63
--- NOTE | 2019-08-09 01:34 | NUR ---
PT LYING IN BED RESTING WITH EYES CLOSED. NO SIGNS OR SYMPTOMS OF DISTRESS NOTED. NO COMPLAINTS AT THIS TIME. CALL LIGHT WITH IN REACH AND BED IS IN LOWEST POSITION. WILL CONTINUE TO MONITOR
[2019-08-09 04:00] VITALS: BP 120/71
[2019-08-09 07:21] LABS: BASOPHILS 0.4 % (0-2); HEMATOCRIT 29.3 % (36.0-48.0); HEMOGLOBIN 9.3 g/dL (12-16); IMMATURE GRANULOCYTES 2.6 % (0-5); LYMPHOCYTES 11.6 % (15-50); MCH 26.7 pg (26.0-34.0); MCHC 31.7 g/dL (31.0-37.0); MCV 84.2 fL (80.0-100.0); MEAN PLATELET VOLUME 7.9 fL (7.4-10.4); MONOCYTES 8.7 % (2-11); NEUTROPHILS 71.7 % (40-80); PLATELET COUNT 311 10x3/uL (130-400); RBC 3.48 10x6/uL (4.00-5.40); RDW 14.6 % (11.5-14.5); WBC 10.4 10x3/uL (4.8-10.8)
[2019-08-09 07:26] LABS: ANION GAP 10.1 mmol/L (8-16); CARBON DIOXIDE 24.6 mmol/L (21.0-32.0); CREATININE - SERUM 1.6 mg/dL (0.6-1.3); POTASSIUM - SERUM 3.7 mmol/L (3.5-5.1); VANCOMYCIN - TROUGH 17.1 ug/mL (10.0-20.0)
[2019-08-09 08:31] LABS: T4 THYROXIN - FREE 1.34 ng/dL (0.76-1.46); THYROID STIMULATING HORMONE 0.76 uIU/mL (0.36-3.74)
[2019-08-09 10:00] VITALS: BP 118/70
--- NOTE | 2019-08-09 10:25 | NUR ---
PATIENT IS ALERT AND AWAKE. SHE SAT UP ON THE SIDE OF THE BED AND HAD BREAKFAST. CLAMPED HER CRAWFORD TO START BLADDER TRAINING SO THAT I CAN REMOVE THE CRAWFORD CATHETER TODAY. PATIENT KNOWS THAT I WILL UNCLAMP THE TUBING WHEN SHE FEELS THE URGE TO PEE.
--- NOTE | 2019-08-09 11:30 | NUR ---
REMOVED CRAWFORD CATHETER ORDERED. REMOVED STERILE WATER FROM THE BALLOON AND IT WAS 9CC. REMOVED CATHETER AND THE PATIENT REPORTS THAT SHE FELT NO DISCOMFORT ON REMOVAL AND IT IS A HUGE RELIEF TO HAVE THE CRAWFORD OUT. SHE WILL ASK FOR HELP BEFORE GETTING UP TO THE TOILET.
[2019-08-09 14:04] VITALS: BP 120/75
--- NOTE | 2019-08-09 14:15 | NUR ---
REMOVED TWO IV'S, CATHETERS INTACT FROM RIGHT ARM BECASUE THEY HAD BECOME DISLODGED. ATTEMPTED 2 STICKS, AND UNSUCCESSFUL. CALLED VASCULAR ACCESS NURSE AND SHE IS ON HER WAY TO PLACE AN IV.
[2019-08-09 18:03] VITALS: BP 141/82
--- NOTE | 2019-08-09 19:00 | NUR ---
AWAKE AND ALERT BED LOCKED NEEDS SEEN TO
--- NOTE | 2019-08-09 19:56 | NUR ---
ASSISTED UP TO BATH PT USING WALKER
[2019-08-09 20:30] VITALS: BP 114/76
[2019-08-10 00:30] VITALS: BP 130/77
--- NOTE | 2019-08-10 03:41 | NUR ---
I have reviewed this patient and I concur with the Shift Assessment completed by the Licensed Practical Nurse today this shift.
[2019-08-10 04:30] VITALS: BP 144/81
[2019-08-10 05:43] LABS: BASOPHILS 0.4 % (0-2); EOSINOPHILS 4.1 % (0-7); HEMATOCRIT 29.9 % (36.0-48.0); HEMOGLOBIN 9.7 g/dL (12-16); IMMATURE GRANULOCYTES 1.8 % (0-5); LYMPHOCYTES 13.6 % (15-50); MCH 27.7 pg (26.0-34.0); MCHC 32.4 g/dL (31.0-37.0); MCV 85.4 fL (80.0-100.0); MEAN PLATELET VOLUME 8.2 fL (7.4-10.4); MONOCYTES 7.1 % (2-11); PLATELET COUNT 340 10x3/uL (130-400); RDW 14.8 % (11.5-14.5); WBC 10.1 10x3/uL (4.8-10.8)
[2019-08-10 05:49] LABS: ANION GAP 9.6 mmol/L (8-16); CALCIUM 8.1 mg/dL (8.5-10.1); CARBON DIOXIDE 26.6 mmol/L (21.0-32.0); CREATININE - SERUM 1.4 mg/dL (0.6-1.3); POTASSIUM - SERUM 4.2 mmol/L (3.5-5.1); VANCOMYCIN - TROUGH 18.3 ug/mL (10.0-20.0)
[2019-08-10 10:46] VITALS: BP 112/70
[2019-08-10 13:43] VITALS: Ht 157.5 cm; Wt 54.1 kg
--- NOTE | 2019-08-10 16:39 | NUR ---
OT NOTE: (AM SESSION) PT COMPLETED ADL MOB WITH RW WITH CGA. PT REQUIRED EXTRA ASSIST WITH MEDICAL EQUIPMENT MANAGEMENT IN ROOM. PT COMPLETED SIT TO STAND WITH CGA. PT COMPLETED FACE WASH WITH SET UP IN CHAIR. (PM SESSION) PT SITTING UP IN CHAIR WITH SBA. PT NOT READY TO RETURN TO BED. PT COMPLETED SIT TO STAND WITH CGA. PT STATED UE IS HURTING DUE TO NEW IV PLACEMENT. [phone] THANK YOU,JAZMÍN BEAVER
--- NOTE | 2019-08-10 19:52 | NUR ---
I have reviewed this patient and I concur with the Shift Assessment completed by the Licensed Practical Nurse today this shift.
[2019-08-10 20:00] VITALS: BP 106/66
--- NOTE | 2019-08-10 20:30 | NUR ---
UP IN CHAIR.NO COMPLAITNS VOICED. RESP EVEN AND UANBLORED. O2 @ 2L PER NC ON. NO DISTRESS NOTED. CL IN REACH
[2019-08-11] VITALS: BP 119/68
--- NOTE | 2019-08-11 02:25 | NUR ---
I have reviewed this patient and I concur with the Shift Assessment completed by the Licensed Practical Nurse today this shift.
[2019-08-11 04:00] VITALS: BP 101/69
--- NOTE | 2019-08-11 08:00 | NUR ---
PT SITTING UP IN CHAIR. CALL LIGHT WITHIN REACH. RR EVEN AND UNLABORED ON ROOM AIR. STATES SHE DOESNT FEEL IF SHE NEEDS O2 AT THIS TIME. NO IV ACCESS AT THIS TIME. DENIES NEEDS OR PAIN. WILL CONTINUE TO MONITOR.
[2019-08-11 09:07] VITALS: BP 99/65
[2019-08-11 13:35] VITALS: BP 176/78
--- NOTE | 2019-08-11 17:12 | NUR ---
I have reviewed this patient and I concur with the Shift Assessment completed by the Licensed Practical Nurse today this shift.
--- NOTE | 2019-08-11 19:16 | NUR ---
RECEIVED UP IN BED WITH EYES OPEN AND TV ON. ALERT AND ORIENTED X4. UP AD RHONDA WITH WALKER. NO IV ACCESS. TELEMETRY IN PLACE. LT ARM RESERVED D/T MASCETOMY. DENIES ANY NEEDS AT THIS TIMWE.
[2019-08-11 20:00] VITALS: BP 116/73
[2019-08-12] VITALS: BP 137/72
[2019-08-12 04:00] VITALS: BP 130/74
[2019-08-12 07:30] VITALS: BP 130/70
[2019-08-12 11:30] VITALS: BP 99/67
[2019-08-12] MEDS ORDERED: CLEOCIN HCL300 MG PO (12:32)
[2019-08-12] MEDS ORDERED: LEVOFLOXACIN500 MG PO (12:32)
[2019-08-12] MEDS ORDERED: BYSTOLIC2.5 MG PO (12:53)
--- NOTE | 2019-08-12 12:59 | NUR ---
CONFIRMED WITH DR SKAGGS THAT PT IS TO CONTINUE BYSTOLIC. ADDED TO DISCHARGE LIST AND RX CALLED IN TO [facility] [address], SPOKE WITH LOVE.
--- NOTE | 2019-08-12 14:25 | MORECARE ---
CASE MANAGEMENT DISCHARGE SUMMARY PATIENT: RICHARD SHELTON UNIT: [id number] ADM DATE: 08/06/19 AGE: 69 : 51 SEX: F ROOM/BED: D.2130 AUTHOR: CLARISSA GONSALVES PHYSICIAN: REFERRING PHYSICIAN: SEJAL NIETO MD DATE OF SERVICE: 08/12/19 Discharge Plan Patient Name: RICHARD SHELTON Facility: [facility]:[place] : 1950 Planned Disposition: Home Anticipated Discharge Date: Discharge Date: 08/12/2019 Expected LOS: Initial Reviewer: [email or web address] Initial Review Date: 08/12/2019 Generated: 08/12/19 3:25 pm DCPIA - Discharge Planning Initial Assessment Updated by [email or web address]: Nickie Arechiga on 08/12/19 2:22 pm * Is the patient Alert and Oriented? Yes * How many steps to enter\exit or inside your home? * PCP * [facility] * Preadmission Environment Home with Family * ADLs Independent * Other Equipment WALKER, CANE, W/C * List name and contact numbers for known caregivers / representatives who currently or will assist patient after discharge: ANTHONY LUTHER LEE ANN [phone] * Verbal permission to speak to the caregivers and representatives has been obtained from the patient. Yes * Community resources currently utilized None * Additional services required to return to the preadmission environment? No * Can the patient safely return to the preadmission environment? Yes * Has this patient been hospitalized within the prior 30 days at any hospital? No Coverage Notice Reviewer: [email or web address] - Nickie Arechiga Notice Issued Date-Time: 08/12/2019 13:20 Notice Type: IM Discharge Notice Notice Delivered To: Patient Relationship to Patient: Self Hand Stapler Name: Delivery Method: HAND - Hand Delivered Amina Days: Prior Verbal Notification: Recipient Understood Notice: Yes Recipient Signature: Yes Med Rec Note Co-signed by Attending: Coverage Notice Comment: Patient Name: RICHARD SHELTON Page [id number] at 1425 All edits/amendments must be made on the electronic document DICTATION DATE: 08/12/19 1425 INTERACTIVE ART DIRECTOR: STACEY 08/12/19 1425 RPT#: [id number] DC DATE:08/12/19 STATUS: DIS IN [facility] [address] [place] [address] END OF REPORT
--- NOTE | 2019-08-12 14:31 | MORECARE ---
CASE MANAGEMENT DISCHARGE SUMMARY PATIENT: RICHARD SHELTON UNIT: [id number] ADM DATE: 08/06/19 AGE: 69 : 51 SEX: F ROOM/BED: D.2134 AUTHOR: BRINA,DOC PHYSICIAN: REFERRING PHYSICIAN: SEJAL NIETO MD DATE OF SERVICE: 08/12/19 Discharge Plan Patient Name: RICHARD SHELTON Facility: [facility]:[place] : 1950 Planned Disposition: Home Anticipated Discharge Date: Discharge Date: 08/12/2019 Expected LOS: Initial Reviewer: [email or web address] Initial Review Date: 08/12/2019 Generated: 08/12/19 3:31 pm Comments DCP- Discharge Planning Updated by [email or web address]: Nickie Arechiga on 08/12/19 1:[address] Patient Name: RICHARD SHELTON Admission Status: ER Accout number: [id number] Admission Date: 08-06-2019 : 1950 Admission Diagnosis: Attending: SEJAL NIETO Current LOS: 6 Anticipated DC Date: Planned Disposition: Home Primary Insurance: MEDICARE A & B Discharge Planning Comments: CM met with patient to complete initial dc planning assessment. CM educated patient on the CM role and verbal consent given by patient to complete assessment. Patient lives at home with her niece where she is independent with her care. At discharge patient plans to return home and feels this is a safe discharge. CM discussed availability of home health, rehab services, and medical equipment. Her niece will be her emergency medical technician/driver home. Patient states she was in the process of getting HH setup with [facility] when she was readmitted. CM asked if she would like CM to help set this up and patient declined. Patient denied known discharge needs at this time. D/C IMM signed 08/11 @ 1320. CM will continue to follow and will assist as needed with dc plans/needs. Lead Shop Operator: Nickie Arechiga DCPIA - Discharge Planning Initial Assessment Updated by [email or web address]: Nickie Arechiga on 08/12/19 2:22 pm * Is the patient Alert and Oriented? Yes * How many steps to enter\exit or inside your home? * PCP QATARI * Pharmacy [facility] * Preadmission Environment Home with Family * ADLs Independent * Other Equipment WALKER, CANE, W/C * List name and contact numbers for known caregivers / representatives who currently or will assist patient after discharge: ANTHONY NANCE - [phone] * Verbal permission to speak to the caregivers and representatives has been obtained from the patient. Yes * Community resources currently utilized None * Additional services required to return to the preadmission environment? No * Can the patient safely return to the preadmission environment? Yes * Has this patient been hospitalized within the prior 30 days at any hospital? No Coverage Notice Reviewer: [id number] Diane Arechiga Notice Issued Date-Time: 08/12/2019 13:20 Notice Type: IM Discharge Notice Notice Delivered To: Patient Relationship to Patient: Self Senior Vice President & General Counsel Name: Delivery Method: HAND - Hand Delivered Amina Days: Prior Verbal Notification: Recipient Understood Notice: Yes Recipient Signature: Yes Med Rec Note Co-signed by Attending: Coverage Notice Comment: Last DP export: 08/12/19 1:25 pm Patient Name: RICHARD SHELTON Page [id number] at 1431 All edits/amendments must be made on the electronic document DICTATION DATE: 08/12/19 1431 MARKETING GRAPHICS SPECIALIST: STACEY 08/12/19 1431 RPT#: [id number] DC DATE:08/12/19 STATUS: DIS IN [facility] [address] [place] [address] END OF REPORT
--- NOTE | 2019-08-12 18:20 | HP ---
PATIENT: RICHARD SHELTON MEDICAL RECORD: [id number] ACCOUNT: [id number] LOCATION:[address] : [birth year] ADMISSION DATE: 08/06/19 PCP: SEJAL NIETO MD HISTORY AND PHYSICAL EXAMINATION DATE OF ADMISSION: 08/06/2019 HISTORY OF PRESENT ILLNESS: This is a 69-year-old female who was seen by Dr. Nieto in the office today and directly admitted to [facility] with worsening shortness of breath, tachycardia, and decreased O2 sat with ambulation. She was recently admitted to [facility] in July with left lower lobe community-acquired pneumonia and a left empyema that required chest thoracostomy times 2 and pleurolysis using thrombolytics per IR. Then, she went to rehab and has been out for about a week or so. When she saw Dr. Nieto on 08/06/2019, he had written admission orders, but there were no beds available, so she went to the ER, where she was seen by the ER doctor. There her BUN and creatinine were elevated at 30 and 2.8 respectively. Her white count was 16,200, hemoglobin 11.7. Lactic acid was elevated at 2.6. Chest x-ray showed worsening left upper lobe infiltrate. She was admitted. PAST MEDICAL HISTORY: Hyperlipidemia, hypertension, breast cancer, osteoarthritis. PAST SURGICAL HISTORY: She underwent mastectomy and section. ALLERGIES: DYAZIDE AND PENICILLIN. HOME MEDICATIONS: Included albuterol HFA 2 puffs q.6 hours p.r.n. shortness of breath and wheeze, DuoNeb updrafts p.r.n., amlodipine 10 mg once a day, Bystolic 2.5 mg once a day, tramadol p.r.n. pain, Pepcid at bedtime. HABITS: Former smoker. No alcohol or drug use. SOCIAL HISTORY: She is retired. FAMILY HISTORY: Father is . He had cancer and hypertension. Mother is . Sister of pancreatic cancer. REVIEW OF SYSTEMS: GENERAL: She has had a mild weight loss over the last few months. HEENT: No particular sinus or allergy problems. RESPIRATORY: Prior to pneumonia in July, she has really not had any diagnoses of COPD or emphysema or asthma. CARDIAC: No history of heart trouble. GASTROINTESTINAL: Occasional heartburn. GENITOURINARY: No significant problems there. MUSCULOSKELETAL: She has had some arthritic aches and pains. NEUROLOGIC: No migraines or seizures. PSYCHIATRIC: No depression or melancholia. PHYSICAL EXAMINATION: VITAL SIGNS: Temperature 97.9, pulse 109, respirations 21, blood pressure 131/82, O2 sat 95%. GENERAL: She is awake and alert. She does not appear to be in acute distress at this time. HISTORY AND PHYSICAL [id number] RICHARD SHELTON SKIN: Warm and dry. HEENT: Grossly within normal limits. NECK: Supple. No JVD or bruit. HEART: Regular rate and rhythm. LUNGS: Fairly clear. Occasional wheeze. ABDOMEN: Soft. EXTREMITIES: No edema. NEUROLOGIC: Intact. LABORATORY DATA: CBC with a white count of 16,200, hemoglobin 11.7, hematocrit 34.8. Basic metabolic panel: Sodium 129, BUN 30, creatinine 2.8. Lactic acid is elevated at 2.6. Urinalysis is normal. DIAGNOSTIC DATA: Chest x-ray showed worsening left upper lobe infiltrate. ASSESSMENT: 1. Pneumonia. 2. Acute kidney injury. 3. Hypoxia. PLAN: She is admitted, started on IV antibiotics, respiratory meds. Pulmonary has been consulted. Other tests or procedures as warranted. TRANSINT:[id number] Voice Confirmation ID: [id number] DOCUMENT ID: [id number] HÉCTOR SKAGGS MD at 1820 CC: [id number] DICTATION DATE: 08/12/19 1302 SHEARING MACHINE OPERATOR: 08/12/19 1701 DIS IN 08/12/19 [address] [place] [address]
== END 2019-08-12 14:00 | disposition home or self-care (01) | DRG 871 ==
LOC: D.ER 15:01 → D.M2 17:47
PROVIDERS: Family Medicine; ADMIT Family Medicine; ATTEND Family Medicine
DX: A41.9 Sepsis, unspecified organism (principal); J18.9 Pneumonia, unspecified organism; J44.0 Chronic obstructive pulmonary disease with (acute) lower respiratory infection; N17.9 Acute kidney failure, unspecified; I12.9 Hypertensive chronic kidney disease with stage 1 through stage 4 chronic kidney disease, or unspecified chronic kidney disease; N18.9 Chronic kidney disease, unspecified; I48.0 Paroxysmal atrial fibrillation; K21.9 Gastro-esophageal reflux disease without esophagitis; D63.1 Anemia in chronic kidney disease; Z86.73 Personal history of transient ischemic attack (TIA), and cerebral infarction without residual deficits

== ENCOUNTER → 2019-10-10 10:34 | Outpatient (CLI) | payer MEDICARE ==
[2019-08-10 13:43] VITALS: BMI 21.9
[~2019-10-10 10:34] MED LIST changes: +BYSTOLIC2.5 MG PO
== END | disposition home or self-care (01) ==
LOC: D.MRI 10:34
PROVIDERS: ATTEND Family Medicine
DX: H53.2 Diplopia (principal)